=== PATIENT | female | born 2000 | race African-American/Black ===

== ENCOUNTER 2023-11-23 12:19 | Emergency (ER) | payer OTHER, SELFPAY ==
[2023-11-23 12:52] VITALS: BP 115/85; PULSE 78; RESP 16; TEMP 37.2; O2SAT 100
--- NOTE | 2023-11-23 13:12 | ED.GENADULT ---
HPI - General Adult General Chief complaint: Urogenital-Female Stated complaint: VAGINAL IRRITATION Time Seen by Provider: 11/23/23 13:12 Source: patient Mode of arrival: ambulatory Limitations: no limitations History of Present Illness HPI narrative: 23-year-old female patient presents to [facility] with complaints of vaginal discharge and irritation the past 2 weeks. Patient states she recently ink a shunt sexual activity with a new partner about 3 weeks ago. Patient states partner is a does not engage in any rectal or oral sex. Patient states no discharge but has had some itchiness and irritation to the vaginal area. Patient states she has had a little bit of more abdominal cramping at times. Denies fevers, body aches or chills. Related Data Home Medications Medication Instructions Recorded Confirmed albuterol sulfate 90 mcg/actuation See Rx Instructions .Route .COMPLEX 11/23/23 11/23/23 aerosol inhaler etonogestrel 0.12 mg-ethinyl 1 vag ring vaginal MONTHLY 11/23/23 11/23/23 estradiol 0.015 mg/24 hr vaginal ring Allergies Allergy/AdvReac Type Severity Reaction Status Date / Time latex Allergy Swelling Verified 11/23/23 12:54 mushroom Allergy Swelling Verified 11/23/23 12:54 Review of Systems Review of Systems: CONSTITUTIONAL: Denies fever, chills, or sweats. EYES: Denies visual changes, redness, or discharge. ENT: Denies rhinorrhea, congestion, sore throat, or otalgia. CARDIOVASCULAR: Denies chest pain, palpitations, or edema. RESPIRATORY: Denies cough or dyspnea. GASTROINTESTINAL: Denies abdominal pain, nausea, vomiting, or diarrhea. GENITOURINARY: Denies dysuria or hematuria. Positive vaginal irritation and itchiness x2 weeks SKIN: Denies rash or itching. MUSCULOSKELETAL: Denies back pain, joint pain, or myalgia. NEUROLOGIC: Denies headache, numbness, or weakness. PSYCHIATRIC: Denies anxiety or depression. PMFSH Comments At the time of my signature I agree with nursing past medical history, surgical, social, and family history. There is no relevant family history pertinent to the presenting complaint. Exam Narrative: GENERAL: Well-appearing, well-nourished, and in no acute distress. HEAD: Normocephalic, atraumatic. EYES: PERRLA and EOMI. ENT: Nares clear, no rhinorrhea or epistaxis. Mucous membranes moist. NECK: Supple. No lymphadenopathy CHEST: Clear to auscultation. No respiratory distress. HEART: Regular rate and rhythm. No murmur heard. Normal peripheral pulses. ABDOMEN: Soft, nontender, nondistended, normal active bowel sounds. no CVA tenderness on percussion : Normal external female genitalia. OS is closed. No adnexal fullness or TTP. No CVA tenderness to percussion. and patient does have yellow discharge noted around the opening of the OS, no active bleeding present. EXTREMITIES: Normal range of motion. No edema. SKIN: Warm, dry, no rash. NEURO: No focal deficits. Alert and oriented x3. Course Course Level of Care: Express Care Visit Vital Signs Vital signs: Vital Signs Temperature 37.2 C 11/23/23 12:52 Pulse Rate 78 11/23/23 12:52 Respiratory Rate 16 11/23/23 12:52 Blood Pressure 115/85 11/23/23 12:52 Pulse Oximetry 100 11/23/23 12:52 Temperature 37.2 C 11/23/23 12:52 Pulse Rate 78 11/23/23 12:52 Respiratory Rate 16 11/23/23 12:52 Blood Pressure 115/85 11/23/23 12:52 Pulse Oximetry 100 11/23/23 12:52 Vital signs reviewed. Medical Decision Making MDM Narrative Medical decision making narrative: Swabs were collected during the vaginal exam and are sent off for testing. We will be testing for bacterial vaginosis, Trichomonas, glucose chlamydia and gonorrhea. Because we are testing and patient does have active symptoms we are going to go ahead and treat today with appropriate antibiotics as well as provide her fluconazole for to help prevent any types of acquiring a yeast infection. We will call patient with results
[2023-11-23] MEDS: cefTRIAXone 500 MG, LIDOCAINE HCL 1% LOCAL INJ 1 ML IM (14:20)
[2023-11-23 16:27] LABS: Trichomonas Vag PCR NOT DETECTED (NOT DETECTE)
[2023-11-23 16:50] LABS: Chlamydia trachomatis NOT DETECTED (NOT DETECTE); Neisseria gonorrhoeae PCR NOT DETECTED (NOT DETECTE)
[2023-11-24 21:33] LABS: Bacterial Vaginosis NEGATIVE (NEGATIVE)
== END 2023-11-23 14:35 | disposition home or self-care (01) ==
PROVIDERS: Emergency Provider Nurse Practitioner Family; PCP Midwife
DX: Z20.2 Contact with and (suspected) exposure to infections with a predominantly sexual mode of transmission (principal); Z11.3 Encounter for screening for infections with a predominantly sexual mode of transmission; J45.909 Unspecified asthma, uncomplicated
CPT/HCPCS: 81003; 81025; 81513; 87086; 87088; 87491; 87591; 87661; 96372; 99214; G0463; J0696